=== PATIENT | female | born 1990 | race African-American/Black ===

== ENCOUNTER 2020-04-14 23:49 | Emergency (ER) | payer OTHER ==
[~2020-04-14] VITALS: Ht 160 cm; Wt 47.6 kg
[2020-04-15] MEDS ORDERED: LORAZEPAM 1 MG TABLET PO ONE (00:30)
[2020-04-15 01:35] VITALS: BP 127/84
[2020-04-15] MEDS ORDERED: LORAZEPAM 1 MG TABLET ONE (01:35)
--- NOTE | 2020-04-15 01:37 | NUR ---
PT ASLEEP COMFORTABLY IN BED. VITAL SIGNS STABLE. NO ACUTE DISTRESS NOTED AT THIS TIME. PER DR. FLORES, WILL CANCEL ATIVAN 1MG PO
== END 2020-04-15 02:37 | disposition home or self-care (01) ==
LOC: ER 23:54
DX: F45.8 Other somatoform disorders (principal); F41.9 Anxiety disorder, unspecified